=== PATIENT | female | born 1995 | race Caucasian/White ===

== ENCOUNTER 2021-11-10 14:14 | Emergency (ER) | payer OTHER, BC ==
[2021-11-10] MEDS ORDERED: Acetaminophen 500 MG TAB ONE (16:33)
== END 2021-11-10 17:30 | disposition home or self-care (01) ==
LOC: ERS 14:14
DX: S09.90XA Unspecified injury of head, initial encounter (principal); V89.2XXA Person injured in unspecified motor-vehicle accident, traffic, initial encounter
CPT/HCPCS: 70450; 72125

== ENCOUNTER 2021-11-22 10:29 | Emergency (ER) | payer BC, SELFPAY | END 2021-11-22 12:49 | disposition home or self-care (01) | LOC: ERS 10:29 | DX: R51.9 Headache, unspecified (principal); G89.11 Acute pain due to trauma | CPT/HCPCS: 99283 ==

== ENCOUNTER 2023-07-27 01:03 | Emergency (ER) | payer BC, OTHER, SELFPAY ==
[2023-07-27] MEDS ORDERED: Lidocaine 1% w/Epinephrine 1:100K 20 ML VIAL ONE (01:57)
[2023-07-27] MEDS ORDERED: Ketorolac Tromethamine 30 MG/ML VIAL ONE (02:35)
[2023-07-27] MEDS ORDERED: Morphine 4 MG/ML VIAL ONE (02:35)
== END 2023-07-27 03:25 | disposition home or self-care (01) ==
LOC: ERS 01:03
DX: K64.8 Other hemorrhoids (principal)
CPT/HCPCS: 10060; 96372; J1885; J2270